=== PATIENT | male | born 1995 | race Two or more races ===

== ENCOUNTER 2020-12-30 20:51 | Emergency (ER) | payer MEDICAID, OTHER ==
[~2020-12-30] VITALS: Ht 165.1 cm; Wt 72.1 kg
[2020-12-30 21:05] VITALS: BP 133/83
[2020-12-30] MEDS ORDERED: KETOROLAC 30 MG/1 ML IVPush ONE (21:30)
[2020-12-30] MEDS ORDERED: ONDANSETRON 2MG/ML, 2ML IVPush ONE (21:30)
[2020-12-30] MEDS ORDERED: SODIUM CHLORIDE FLUSH 10ML SYR IVF ONE (21:30)
[2020-12-30] MEDS ORDERED: MORPHINE SULFATE 4 MG/ML, 1ML IVPush PRN (21:30)
[2020-12-30] MEDS ORDERED: KETOROLAC 30 MG/1 ML ONE (21:32)
[2020-12-30] MEDS ORDERED: ONDANSETRON 2MG/ML, 2ML ONE (21:32)
[2020-12-30] MEDS ORDERED: MORPHINE SULFATE 4 MG/ML, 1ML ONE (21:32)
[2020-12-30 21:37] LABS: BASOPHILS % (AUTO) 0 % (0-1); EOSINOPHILS % (AUTO) 0 % (1-7); LYMPHOCYTES % (AUTO) 10 % (22-44); MEAN CORPUSCULAR HEMOGLOBIN 33.2 pg (27.5-34.5); MEAN CORPUSCULAR HGB CONC 34.2 g/dL (33.2-36.2); MEAN PLATELET VOLUME 8.6 fL (7.4-10.4); MONOCYTES % (AUTO) 8 % (2-9); NEUTROPHILS % (AUTO) 81 % (42-75); PLATELET COUNT 166 x10^3/uL (130-400); RED BLOOD COUNT 5.12 x10^6/uL (4.38-5.82); RED CELL DISTRIBUTION WIDTH 13.4 % (9.4-14.8)
[2020-12-30 21:46] LABS: ALANINE AMINOTRANSFERASE 21 U/L (12-78); ALBUMIN 3.8 g/dL (3.4-5.0); ANION GAP 5 mmol/L (5-15); CALCIUM 8.7 mg/dL (8.5-10.1); CHLORIDE 107 mmol/L (98-107); CREATININE 0.89 mg/dL (0.7-1.3)
--- NOTE | 2020-12-30 21:47 | NUR ---
Pt states having LBP x 1 day. Denies numbess or tingling but states it feels like his legs might give out. Pt on monitor. IV started, and medicated per order. Family at bedside. Call light in reach. Warm blanket given. Will monitor.
[2020-12-30 21:48] LABS: ALKALINE PHOSPHATASE 84 U/L (45-117); BILIRUBIN,TOTAL 0.3 mg/dL (0.2-1.0); TOTAL PROTEIN 7.3 g/dL (6.4-8.2)
[2020-12-30 21:49] LABS: MD NO
--- NOTE | 2020-12-30 21:58 | NUR ---
Pt asleep, states pain has improved from 10/10 to 8/10. Will continue to monitor.
--- NOTE | 2020-12-30 23:13 | NUR ---
Pt states feeling better. Attempts to provide UA. Unable to produce. Gave patient water, will attempt again soon. Pt ambulated to BR without difficulty.
[2020-12-30 23:51] LABS: MICROSCOPIC NOT IND
--- NOTE | 2020-12-31 00:43 | NUR ---
Pt dc'd with written and verbal instruction. Pt states he understands. Pt IV dc'd intact. Pt instructed not to drive home. Pt states his sister is here for ride home. Pt ambulatory out of ED without difficulty.
== END 2020-12-31 00:45 | disposition home or self-care (01) ==
LOC: ED 23:30
DX: S39.012A Strain of muscle, fascia and tendon of lower back, initial encounter (principal); S29.012A Strain of muscle and tendon of back wall of thorax, initial encounter; R42 Dizziness and giddiness; F17.290 Nicotine dependence, other tobacco product, uncomplicated; Z88.0 Allergy status to penicillin; R06.02 Shortness of breath; X58.XXXA Exposure to other specified factors, initial encounter; Y93.89 Activity, other specified; Y92.89 Other specified places as the place of occurrence of the external cause; Y99.8 Other external cause status
CPT/HCPCS: 36415; 80053; 81003; 83690; 85025; 96374; 96375; 99284; 99406; J1885; J2270; J2405

== ENCOUNTER 2021-06-26 16:10 | Emergency (ER) | payer MEDICAID ==
[~2021-06-26] VITALS: Ht 165.1 cm; Wt 68.9 kg
[2021-06-26 17:22] VITALS: BP 147/91
--- NOTE | 2021-06-26 19:54 | NUR ---
NO ANS X 1
--- NOTE | 2021-06-26 20:13 | NUR ---
NIL X2
--- NOTE | 2021-06-26 20:34 | NUR ---
NIL X3
== END 2021-06-26 20:36 | disposition left against medical advice (07) ==
LOC: ED 20:30
DX: H57.11 Ocular pain, right eye (principal); Z53.21 Procedure and treatment not carried out due to patient leaving prior to being seen by health care provider